=== PATIENT | male | born 2000 | race Caucasian/White ===

== ENCOUNTER 2023-01-20 17:54 | Emergency (ER) | payer BC, SELFPAY ==
[2023-01-20 17:57] VITALS: BP 126/61; PULSE 72; RESP 14; TEMP 36.7; O2SAT 98; BMI 26.4
[2023-01-20 19:00] VITALS: BP 116/71; PULSE 63; O2SAT 98
--- NOTE | 2023-01-20 19:01 | XR_ITS ---
PROCEDURE INFORMATION: Exam: XR Left Wrist Exam date and time: 01/20/23 06:57 PM Age: 22 years old Clinical indication: Pain; Wrist; Left; Additional info: Traumatic wrist pain TECHNIQUE: Imaging protocol: Radiologic exam of the left wrist. Views: 3 or more views. COMPARISON: No relevant prior studies available. FINDINGS: Bones/joints: Normal. Soft tissues: Normal. IMPRESSION: No acute findings.
--- NOTE | 2023-01-20 19:02 | [facility].EDGENADL ---
Discharge Plan Disposition Chief Complaint: Extremity Injury, Upper Referrals Follow up/Referrals: Provider,Referral, [Primary Care Provider] - See instructions Clinical Impressions Clinical Impression: Sprain and strain of wrist Discharge ED Provider: Pasha Beyer General Adult HPI General Chief complaint: Extremity Injury, Upper Stated complaint: AO LT wrist injury Time Seen by Provider: 01/20/23 18:57 Mode of Arrival: Ambulatory Limitations: No Limitations Description of Symptoms (Recalled from ER Triage Doc. by RN): Patient states he was holding wood wrong and dropped it on his left wrist. History of Present Illness HPI narrative: Patient is a 22-year-old male with no pertinent past medical history who presents emergency department for evaluation of left wrist trauma. History is obtained by patient at bedside. Patient was holding approximate 9 pieces of plywood when his wrist bent backwards causing severe global wrist pain. Denies other traumatic injuries. Pain is moderate to severe in intensity. He is able to range his digits. No other acute complaints at this time Related Data Allergies Allergy/AdvReac Type Severity Reaction Status Date / Time kiwi Allergy Verified 01/20/23 18:34 bees Allergy Uncoded 01/20/23 18:34 [facility] Disclaimer: The information contained in this section may have been updated after the patient was seen, as this information can be updated by other users. Social History Smoking Status: Current every day smoker alcohol intake: never current occupational status: previously employed Travel in the last 8 weeks: None ROS Obtained: Yes Systems reviewed as appropriate & no additional complaints except as documented Physical Exam General General appearance: alert and in no apparent distress Head Head exam: atraumatic and normocephalic Eye Eye exam: Present PERRL and EOMI ENT ENT exam: Present mucous membranes moist Neck Neck exam: Present normal inspection Chest Chest inspection: Present normal inspection and symmetric chest wall rise Respiratory Respiratory exam: Absent respiratory distress Cardiovascular Cardiovascular exam: Present regular rate and normal rhythm Abdominal Exam Abdominal exam: Present soft; Absent tenderness Extremities Exam Extremities exam: Present normal inspection, tenderness (Tenderness around the wrist.) and other (Active range of motion is preserved at the MCP, PIP, DIP joints in the left hand. Capillary refill preserved all digits of the left hand. Sensation intact to light touch distally all digits left hand. Limited active and passive range of motion at the wrist secondary to pain.) Neurological Exam Neurological exam: Present alert and oriented X3 Psychiatric Psychiatric exam: Present normal affect Skin Skin exam: Present warm and dry Medical Decision Making Ry Inquiry Pt receiving controlled substance: No Vital Signs: 01/20/23 17:57 01/20/23 19:00 01/20/23 19:31 Temperature 98.1 F Temperature Source Oral Pulse Rate 63 64 Pulse Rate [Radial] 72 Respiratory Rate 14 Blood Pressure 116/71 128/75 Blood Pressure [Right Arm] 126/61 Blood Pressure Mean 97 100 Blood Pressure Mean [Right Arm] 82 Blood Pressure Source [Right Arm] Automatic Cuff Blood Pressure Position [Right Arm] Sitting 02 Sat by Pulse Oximetry 98 98 99 Oxygen Delivery Method Room Air Room Air Room Air Orders (Tests/Meds): ED MEDICATIONS Discontinued Medications Generic Name Dose Route Start Last Admin Trade Name Freq PRN Reason Stop Dose Admin Acetaminophen 1,000 mg 01/20/23 19:02 01/20/23 19:17 Acetaminophen 500mg Tab PO 01/20/23 19:03 1,000 mg ONCE ONE Administration ORDERS Category Date Time Status Wrist XR left minimum 3 views [XR wrist LT min 3V] Stat Exams 01/20/23 19:01 Completed Medical Decision Narrative: In summary patient is a 22-year-old male with past medical history won
--- NOTE | 2023-01-20 19:26 | PC.NURSE ---
ice pack applied
[2023-01-20 19:31] VITALS: BP 128/75; PULSE 64; O2SAT 99
--- NOTE | 2023-01-20 19:50 | PC.NURSE ---
ROUNDED ON PT ASKED FOR A SNACK GAVE HIM A BAG OF CHIPS, VISITOR AT [employer]
[2023-01-20 20:00] VITALS: BP 121/70; PULSE 78; RESP 18; TEMP 36.6; O2SAT 98
== END 2023-01-20 20:06 | disposition home or self-care (01) ==
PROVIDERS: Emergency Provider Emergency Medicine
DX: S63.92XA Sprain of unspecified part of left wrist and hand, initial encounter (principal); S66.912A Strain of unspecified muscle, fascia and tendon at wrist and hand level, left hand, initial encounter; F17.200 Nicotine dependence, unspecified, uncomplicated; X50.1XXA Overexertion from prolonged static or awkward postures, initial encounter
CPT/HCPCS: 73110; 99283